=== PATIENT | male | born 1975 | race Hispanic/Latino ===

== ENCOUNTER 2018-04-07 14:47 | Emergency (ER) | payer SELFPAY ==
[2018-04-07] MEDS ORDERED: Lidocaine 1% (PF) 30 ML VIAL ONE (15:00)
[2018-04-07] MEDS ORDERED: Adacel (T-DAP) 0.5 ML SYRINGE ONE (15:36)
--- NOTE | 2018-04-07 16:32 | RAD ---
LEFT THUMB THREE VIEWS: 04/07/18 HISTORY: Injury, left thumb pain. FINDINGS/IMPRESSION: There is a comminuted fracture involving the tuft and shaft of the distal phalanx of the left thumb w ithout significant displacement. POS: [facility]
[2018-04-07] MEDS ORDERED: Ibuprofen 800 MG TAB ONE (16:54)
[2018-04-07] MEDS ORDERED: Bacitracin Zinc 1 Packet ONE ×2 (17:12→17:13)
== END 2018-04-07 17:35 | disposition home or self-care (01) ==
LOC: ERS 14:47
DX: S62.522A Displaced fracture of distal phalanx of left thumb, initial encounter for closed fracture (principal); S61.012A Laceration without foreign body of left thumb without damage to nail, initial encounter; F17.210 Nicotine dependence, cigarettes, uncomplicated; W22.8XXA Striking against or struck by other objects, initial encounter; Y99.0 Civilian activity done for income or pay
CPT/HCPCS: 12001; 90471; 90715; J2001